=== PATIENT | female | born 1940 | race Caucasian/White ===

== ENCOUNTER 2022-09-03 16:16 | Inpatient (IN) | payer MEDICARE ==
[2022-09-03] MEDS ORDERED: Sodium Chloride 0.9% 10 ML Syringe FLUSH PRN ×2 (16:20→19:31)
[2022-09-03] MEDS ORDERED: Sodium Chloride 0.9% 1,000 ML IV SCH (16:30)
[2022-09-03 16:58] LABS: ESTIMATED GFR 74 mL/min (>60); TROPONIN I HIGH SENSITIVITY 6.3 pg/mL (<=60.3)
[2022-09-03] MEDS ORDERED: Acetaminophen 325 MG Tab PO PRN (19:31)
[2022-09-03] MEDS ORDERED: Ondansetron 4 MG/2 ML SDV IV PRN (19:31)
[2022-09-03] MEDS ORDERED: Enoxaparin 40 MG/0.4 ML Syringe SUBCUT SCH (21:00)
[2022-09-04] MEDS ORDERED: Pantoprazole 40 MG Tab.CR PO SCH (09:00)
[2022-09-04] MEDS ORDERED: atorvaSTATin 20 MG Tab PO SCH (09:00)
[2022-09-04] MEDS ORDERED: Enoxaparin 40 MG/0.4 ML Syringe SUBCUT SCH (09:00)
[2022-09-04] MEDS ORDERED: Isosorbide Mononitrate 30 MG Tab.ER PO SCH (09:00)
[2022-09-04] MEDS ORDERED: Aspirin 81 MG Tab.EC PO SCH (09:00)
== END 2022-09-04 10:54 | disposition home or self-care (01) | DRG 312 ==
LOC: JP.ED 16:16 → JP.ICU 18:34
PROVIDERS: ADMIT Hospitalist; ATTEND Internal Medicine
DX: R55 Syncope and collapse (principal); U07.1 COVID-19; T44.7X5A Adverse effect of beta-adrenoreceptor antagonists, initial encounter; I25.10 Atherosclerotic heart disease of native coronary artery without angina pectoris; F17.200 Nicotine dependence, unspecified, uncomplicated; E78.00 Pure hypercholesterolemia, unspecified; H54.7 Unspecified visual loss; I10 Essential (primary) hypertension; J44.9 Chronic obstructive pulmonary disease, unspecified; F10.90 Alcohol use, unspecified, uncomplicated; Z79.82 Long term (current) use of aspirin; Z79.899 Other long term (current) drug therapy; Z98.49 Cataract extraction status, unspecified eye; Z85.118 Personal history of other malignant neoplasm of bronchus and lung
CPT/HCPCS: 36415; 71045; 71045-26; 80048; 80053; 80307; 83735; 84439; 84443; 84481; 84484; 85025; 86618; 93005; 99222; 99238; A9270-GY; J1650; J3490; J7030; U0002